=== PATIENT | male | born 1965 | race Caucasian/White ===

== ENCOUNTER 2018-03-22 00:36 | Emergency (ER) | payer OTHER ==
[~2018-03-22] VITALS: Ht 175.3 cm; Wt 99.8 kg
[2018-03-22 00:40] VITALS: BP 187/98
[2018-03-22] MEDS ORDERED: HYDROmorphone PF 1 MG/ML DISP.SYRIN IV ONE (01:00)
--- NOTE | 2018-03-22 01:00 | PHYS DOC ---
Adult General Chief Complaint Chief Complaint: LACERATION/AVULSION HPI HPI 52-year-old male presents with laceration to left cheek. The patient was at work. This is a Worker's Comp. case. The patient was using a grinding wheel when he believes the wheel broke and a piece of the card grinder helper flew up and hit him in the face shield. Most of the impact was absorbed by the fascial, but the piece of something scratched across his cheek below the eye. He has had some bleeding that is now controlled. The patient denies any other injuries or complaints. His employer requested that he get it checked out and cleaned. Review of Systems Review of Systems Constitutional: Denies fever or chills [] Eyes: Denies change in visual acuity, redness, or eye pain [] HENT: Denies nasal congestion or sore throat [] Respiratory: Denies cough or shortness of breath [] Cardiovascular: No additional information not addressed in HPI [] GI: Denies abdominal pain, nausea, vomiting, bloody stools or diarrhea [] : Denies dysuria or hematuria [] Musculoskeletal: Denies back pain or joint pain [] Integument: 5 cm abrasion of the left cheek[] Neurologic: Denies headache, focal weakness or sensory changes [] Endocrine: Denies polyuria or polydipsia [] All other systems were reviewed and found to be within normal limits, except as documented in this note. Physical Exam Physical Exam Constitutional: Well developed, well nourished, no acute distress, non-toxic appearance. [] HENT: Normocephalic, atraumatic, bilateral external ears normal, oropharynx moist, no oral exudates, nose normal. No signs of trauma to the inside of the mouth. No bony tenderness of the maxilla [] Eyes: PERRLA, EOMI, conjunctiva normal, no discharge. [] Neck: Normal range of motion, no tenderness, supple, no stridor. [] Cardiovascular:Heart rate regular rhythm, no murmur [] Lungs & Thorax: Bilateral breath sounds clear to auscultation [] Abdomen: Bowel sounds normal, soft, no tenderness, no masses, no pulsatile masses. [] Skin: 5 cm superficial abrasion to the left cheek.[] Back: No tenderness, no CVA tenderness. [] Extremities: No tenderness, no cyanosis, no clubbing, ROM intact, no edema. [] Neurologic: Alert and oriented X 3, normal motor function, normal sensory function, no focal deficits noted. [] Psychologic: Affect normal, judgement normal, mood normal. [] EKG EKG [] Radiology/Procedures Radiology/Procedures [] Course & Med Decision Making Course & Med Decision Making Pertinent Labs and Imaging studies reviewed. (See chart for details) The patient's laceration turns out to be an abrasion. There is nothing to repair at this time. The abrasion was cleaned with a saline chlorhexidine solution. Bleeding was well controlled. Bactroban was placed over the wound for infection prophylaxis. No oral antibiotics indicated at this time. The patient was unsure of his last tetanus shot so T Dap was given in the ED. He is stable for discharge at this time. [] Dragon Disclaimer Dragon Disclaimer This electronic medical record was generated, in whole or in part, using a voice recognition dictation system. Departure Departure: Referrals: PCP,QUENTIN (PCP) DONALDO GORDON DO Mar 22, 2018 01:00
[2018-03-22] MEDS ORDERED: DIPHTH,PERTUSS(ACELL),TET TOX 0.5 ML DISP.SYRIN. VAX IM ONE (01:30)
== END 2018-03-22 01:45 | disposition home or self-care (01) ==
LOC: ER 00:36 → EEVIPCON 00:36 → ER 01:45
DX: S00.81XA Abrasion of other part of head, initial encounter (principal); W22.8XXA Striking against or struck by other objects, initial encounter; Y93.89 Activity, other specified; Y92.89 Other specified places as the place of occurrence of the external cause; Y99.0 Civilian activity done for income or pay
CPT/HCPCS: 90471; 90715; 99283-25